=== PATIENT | male | born 1945 | race Caucasian/White ===

== ENCOUNTER → 2016-09-05 07:38 | Day surgery (SDC) | payer MEDICARE, BC ==
[~2016-09-05 07:38] MED LIST: Atracurium* 10 MG/ML 10 ML VIAL ONE; Buffered Lidocaine 1% SYRIN* 3 ML/SYR SYRINGE INTRADERM ONE; Bupivacaine 0.5% W/EPI SDV* 30 ML VIAL ONE; Desflurane* 240 ML INH ONE; Dexamethasone IV* 4 MG/ML 1 ML (4 MG) IV SLOW PU ONE; Dexamethasone IV* 4 MG/ML 1 ML (4 MG) ONE; DiMENhydriNATE IV* 50 MG/ML VIAL IV PUSH PRN; EPHEDrine (Pressors)* 50 MG/ML VIAL ONE; EPINEPHrine AMP 1 MG/ML ONE; HYDROmorphone* 1 MG/ML 1 ML SYR IV PRN; Hydrocortisone INJ* 100 MG VIAL ONE; Hydrocortisone INJ* 250 MG VIAL IV ONE; Ketorolac INJ* 30 MG/ML 1 ML VIAL ONE; Midazolam* 1 MG/ML 5 ML VIAL (5 MG) ONE; Ondansetron INJ* 2 MG/ML VIAL IV PRN; Ondansetron INJ* 2 MG/ML VIAL ONE; Phenylephrine INJ* 10 MG/ML 1 ML VIAL (10 MG) ONE; Phenylephrine IV* 40 MCG/ML 10 ML SYRINGE ONE; Propofol* 10 MG/ML 20 ML BTL IV PUSH ONE; ROPIVACAINE 5 MG/ML 30 ML BTL (0.5%) ONE; ceFAZolin 2 GM PREMIX(*) 2 GM/50 ML BAG IVPB ONE; fentaNYL* 50 MCG/ML 2 ML VIAL (100 MCG VIAL) IV PRN; fentaNYL* 50 MCG/ML 2 ML VIAL (100 MCG VIAL) ONE; oxyCODONE/Acetamin 5/325 MG* TAB PO PRN
[2016-09-05 15:05] VITALS: BP 122/76
--- NOTE | 2016-09-06 06:37 | OP ---
OPERATIVE REPORT: DATE OF OPERATION: 09/05/16 DATE OF : 49 SURGEON: Walt Dillon MD PLATEN PRESS OPERATOR: BERENICE Abreu. ANESTHESIOLOGIST: Michael Joyce MD ANESTHESIA: General anesthesia, regional anesthesia. ANTIBIOSIS: Ancef 2 g IV. IV FLUIDS: See anesthesia note. COMPLICATIONS: None. SPECIMEN: None. IMPLANTS: Mitek Healix 5.5 mm suture loaded anchor x1; Mitek Healix 5.5 mm suture anchor, Knotless x1. ESTIMATED BLOOD LOSS: Minimal. PREOPERATIVE DIAGNOSES: 1. Right shoulder high grade, partial thickness, acromial sided subscapularis rotator cuff tendon t ear. 2. Right shoulder moderate grade articular sided supraspinatus partial thickness rotator cuff tendo n tear. 3. Right shoulder subacromial impingement. 4. Right shoulder acromioclavicular joint arthritis. 5. Right shoulder proximal biceps tendinosis and superior labral tear. POSTOPERATIVE DIAGNOSES: 1. Right shoulder high grade partial thickness acromial sided subscapularis rotator cuff tendon tea r. 2. Right shoulder moderate grade articular sided supraspinatus partial thickness rotator cuff tendo n tear. 3. Right shoulder subacromial impingement. 4. Right shoulder acromioclavicular joint arthritis. 5. Right shoulder proximal biceps tendinosis and superior labral tear. OPERATIVE PROCEDURE: 1. Right shoulder arthroscopic rotator cuff tendon repair, subscapularis, supraspinatus. 2. Right shoulder arthroscopic subacromial decompression. 3. Right shoulder arthroscopic distal clavicle resection. 4. Right shoulder arthroscopic release of proximal biceps. 5. Right shoulder arthroscopic debridement, superior labrum. INDICATIONS: The patient is 71-year-old man left-hand dominant, retired, with polymyalgia rheumatic a, who presented to me in clinic with right shoulder pain. While he had had the shoulder pain for a total of approximately 10 months preoperatively, it worsened just over 6 months preoperatively when the patient was lifting mulch at home and had an increase in the level of pain. He had a significant amount of pain with activities of daily living such as driving, dressing and al so with sleep. I treated the patient with a cortisone injection, subacromial, right, which helped the symptoms sign ificantly, but transiently. I treated the patient with home exercises for rotator cuff strengthenin g. He had done an extensive course of physical therapy before meeting me. He had also found that p rednisone oral, which he takes for polymyalgia rheumatica from his primary care physician, would hel p his symptoms. The patient had some interest in surgery in May but then went to [facility] for 2 months for jesus hansen winter. On examination, while he had positive subacromial impingement signs previously, on his last clinic v isit he had a negative Neer and negative Castellano. His range of motion most recently was 180 degrees of forward flexion, 90 degrees of external, 70 degrees of internal range of motion. Positive pain and mild weakness with supraspinatus stress testing at the last clinic visit. At the same visit he had pain, mild, as well severe weakness with belly press test and moderate weakness with bear-hug te sting. Tenderness to palpation of the bicipital groove as well as the AC joint and positive Speed's and Bradley's test. Those both produced pain. X-rays of the shoulder showed AC joint narrowing and mild glenohumeral joint narrowing. An MRI of jesus mata right shoulder demonstrated a high grade undersurface partial thickness tear of the subscapulari s. It appeared that there really were only a few bursal fibers intact along much of the length of jesus hansen subscap, certainly the cephalad half. There was some retraction of these subscapularis fibers to the level of the glenoid. Patient had also a [id number] grade partial thickness undersurface tear of the anterior supraspinatus. There is a much signal change in the proximal biceps consistent with tendinosis or partial tear and there was also some AC joint narrowing and some cyst in the dis dana clavicle. I measured that the patient had 25% to 50% atrophy in the supraspinatus and subscapul aung T1 sagittal slices. Patient was interested in surgery. Described at length in clinic benefits, risks, and possible comp lications of surgery. Prior to the patient signing up for surgery I e-mailed the patient my postoper ative protocol so he had a feel for the length and extent and burdensome nature of rotator cuff repa ir rehab, which I thought it was important given the patient's age and also that if anything he migh t seem a little bit physiologically older than his stated age. He was interested in the surgery and he is having significant pain with activities of daily living, so we went forward with the procedur e. DESCRIPTION OF PROCEDURE: Preoperative written consent. Operative extremity was marked in preoperat brent holding. The patient was taken back to the operating room. On the operating room table the bhavin ent had a regional interscalene nerve block performed by anesthesia. Patient was sedated and intuba ana. The patient was then turned into the lateral to decubitus position with the right side up. Al l bony prominences were padded. A chest roll was placed. Argueta bag was insufflated. The arm was pl aced in 10 pounds of traction, longitudinal, proximally 35 degrees of abduction and 15 degrees of fo rward flexion. Later in the procedure I increased that to 15 pounds of traction. The right upper ex tremity was prepped and draped. Surgical timeout was performed. The glenohumeral joint was entered from posterior with a spinal needle and 30 mL of normal saline were infused. I then entered through a posterior glenohumeral joint portal using standard technique. Within the joint I encountered jose e fraying, grade 1 to 2 changes in the articular cartilage of the glenoid and humeral head, but no u nstable cartilage lesions. Patient had significant fraying about superior labrum, biceps and supras pinatus when entered, so visibility was poor. I visualized subscapularis [place] footprint anteriorl y. I visualized as well as supraspinatus [place] footprint superiorly. Anticipating an arthroscopic subscapularis rotator cuff tendon repair, rather than the anterior port al I made an anterosuperior portal just inferior to the AC joint. I entered an arthroscopic shaver a nd used it to debride the superior labrum as well some frayed tissue on the undersurface of the supr aspinatus. This allowed me to visualize the biceps, which was totally shredded. It was incredibly frayed and looked 100% diseased it is entire width for the length of the biceps within the joint. R emarkable that it was still intact. I cut the biceps tendon with my arthroscopic shaver. I believe I finished off the cut with scissors. I then made an anterolateral portal and through it I debride d the subscapularis-rotator cuff tendon footprint that was there. I also entered the shaver and tremaine ed up the subscapularis, deep, superficial, and superior with the arthroscopic shaver. I also throu gh this anterolateral portal debrided the tissue plane between the superior labrum and the supraspin atus. The supraspinatus and the subscapularis in this instance seemed very well connected by more t petersen just comma tissue, as if they were one sheet of tissue. I tried to debride nontraumatically a c lear plane between the two, but they were both retracted about the level of the glenoid and it was n ot clear if there was a nice plane between the two. My anterosuperior intended portal actually ended up being just superior to the subscapularis as it e ntered the joint, likely because of some displacement of that subscapularis. Not liking my set up a t this moment given the retraction of the subscapularis and my anterosuperior portal placement, I de cided to hold off on now for the subscapularis repair and to go subacromial, assess the supraspinatu s and subscapularis and either return to the joint or to then do the subscapularis repair open later in the procedure. I removed instruments, I then placed my arthroscope from posterior into the subacromial space and a plastic 5 mm cannula anteriorly into the subacromial space with irrigation attached to it. I establ ished a lateral subacromial portal under direct visualization. I used an arthroscopic shaver to lashonda ride bursitis in this subacromial space. I then used a VAPR to debride the undersurface of the acro mion. There was some hooking to the acromion, but it was most traumatic adjacent to the AC joint, th e anteromedial acromion was this hooking. I identified a clear footprint of the anterior supraspina tus, confluent with a bare area of the subscapularis. The biceps had retracted distal to the field of view. The rotator cuff tendon tissue, while somewhat frayed with a rotator cuff grasper, could b e hold out to length and oppose the [place] footprint of the supraspinatus and subscapularis. I plac ed 1 triple loaded anchor in the middle of the visible defect in the subacromial space from posterio r to anterior encompassing the anterior supraspinatus as well as some of the subscapularis. I then used an TRUSTe device to pass horizontal mattress stitches x3 into the rotator cuff tendon. My a ssistant broke a suture with a grasper so we placed 2 of these 3 stitches horizontal mattress. Thes e stitches nicely opposed the rotator cuff tendon, visible from subacromial. In order to supplement this repair as the stitches were repairing a wide region of tendon anterior to posterior as well as because there was some tendon posteriorly, which was some supraspinatus that had not been fully opp osed with the first anchor, I then placed a lateral row Mitek Healix anchor. I placed the stitches from the medial row into that anchor and I also used free suture from that anchor to place a horizon dana mattress stitch into the supraspinatus. This very nicely opposed the rotator cuff tendon tissue to bone. The repair was stable and I visualized it from a posterolateral bilateral and anterolatera l portal. Of note, I placed the medial row anchor through a superolateral portal. I placed the lat eral row anchor through the anterolateral portal. After the repair it had been noted to be stable f rom the subacromial space, I returned to the joint, wanting to assess the quality of the subscapular is repair and the need for any open procedure to supplement this repair or any additional work from the joint of the subacromial space. What I visualized inside the joint was an excellent supraspinat us repair as well as an excellent subscapularis repair. I probed both from within the joint and the y seemed stable. They looked stable, so I decided that no additional anchors were needed. Fluid and instruments were removed from the glenohumeral joint. I then entered the subacromial space again a nd treated the AC joint. I first debrided the bursitis about the AC joint with a VAPR, working from lateral and then from anterior. I then, having earlier debrided the undersurface of the acromion w ith my nathalie from lateral I did the same to the acromion from anterior to go after the prominent hook about the anteromedial aspect of the acromion. I then debrided the distal clavicle, perhaps 4 to 5 mm enough to decompress the bony cyst that I had visualized preoperatively on MRI. All instruments and fluid were removed from the joint. Skin incisions were closed with [id number] ght stitches using nylon 4.0 suture. Xeroform 4x4s, ABD, foam tape. Patient was placed in an Ultra Sling with abduction pillow, awakened, extubated and brought to the PACU. The patient was to be discharged home when medically stable. Patient will follow up with me in 10 to 14 days postoperatively. Patient has already called me on my cell phone number with several questi ons and I answered them. He has detailed discharge instructions. I sent him home with prescription s for Percocet, aspirin, and Keflex. [id number]/[facility] #: [id number]
== END | disposition home or self-care (01) ==
LOC: EDSTATUS 07:30 → SDS 07:38
PROVIDERS: ATTEND Orthopaedic Surgery
DX: M75.111 Incomplete rotator cuff tear or rupture of right shoulder, not specified as traumatic (principal); M75.41 Impingement syndrome of right shoulder; M19.011 Primary osteoarthritis, right shoulder; M75.21 Bicipital tendinitis, right shoulder; M35.3 Polymyalgia rheumatica; I10 Essential (primary) hypertension; Z95.5 Presence of coronary angioplasty implant and graft
CPT/HCPCS: A9270-GY; J0171; J0690; J1100; J1720; J1885; J2250; J2405; J2704; J2795; J3010